=== PATIENT | male | born 1950 | race Two or more races ===

== ENCOUNTER 2021-03-31 10:30 | Inpatient (IN) | payer OTHER ==
[2021-04-05] MEDS ORDERED: VITAMIN B-121000 MC1 (08:21)
[2021-04-05] MEDS ORDERED: VITAMIN D3250 MCG (08:22)
[2021-04-13] MEDS ORDERED: ULTRAM50 MG PO (11:35)
[2021-04-13] MEDS ORDERED: INTESTINEX680 M1 PO (11:37)
== END 2021-04-13 12:09 | disposition home or self-care (01) | DRG 330 ==
LOC: ADM 10:30 → O/R 04-05 05:20 → SURG 04-05 05:20 → SURH 04-05 07:00 → CIR.AMB 04-05 10:30 → EDSTATUS 04-05 10:30 → SURG 04-05 12:01
PROVIDERS: ADMIT Surgery; ATTEND Surgery
PROC: 07BD3ZX Excision of Aortic Lymphatic, Percutaneous Approach, Diagnostic (ICD-10-PCS; 2021-04-05)
PROC: 0DNE4ZZ Release Large Intestine, Percutaneous Endoscopic Approach (ICD-10-PCS; 2021-04-05)
PROC: 0DBU4ZZ Excision of Omentum, Percutaneous Endoscopic Approach (ICD-10-PCS; 2021-04-05)
PROC: 3E0F7SF Introduction of Other Gas into Respiratory Tract, Via Natural or Artificial Opening (ICD-10-PCS; 2021-04-05)
PROC: 4A12X4Z Monitoring of Cardiac Electrical Activity, External Approach (ICD-10-PCS; 2021-04-05)
PROC: 4A033R1 Measurement of Arterial Saturation, Peripheral, Percutaneous Approach (ICD-10-PCS; 2021-04-05)
PROC: 0DBE4ZZ Excision of Large Intestine, Percutaneous Endoscopic Approach (ICD-10-PCS; principal; 2021-04-05 07:00)
PROC: BW2110Z Computerized Tomography (CT Scan) of Abdomen and Pelvis using Low Osmolar Contrast, Unenhanced and Enhanced (ICD-10-PCS; 2021-04-12)
DX: D12.2 Benign neoplasm of ascending colon (principal); K91.89 Other postprocedural complications and disorders of digestive system; K56.7 Ileus, unspecified; B19.10 Unspecified viral hepatitis B without hepatic coma; Y83.8 Other surgical procedures as the cause of abnormal reaction of the patient, or of later complication, without mention of misadventure at the time of the procedure; Y92.230 Patient room in hospital as the place of occurrence of the external cause; K66.0 Peritoneal adhesions (postprocedural) (postinfection); Z20.822 Contact with and (suspected) exposure to COVID-19; I73.89 Other specified peripheral vascular diseases; D64.9 Anemia, unspecified; F10.10 Alcohol abuse, uncomplicated

== ENCOUNTER 2021-04-29 07:55 | Emergency (ER) | payer OTHER ==
[~2021-04-29] VITALS: Ht 177.8 cm; Wt 77.1 kg
[~2021-04-29 07:55] MED LIST: INTESTINEX680 M1 PO; ULTRAM50 MG PO; VITAMIN B-121000 MC1; VITAMIN D3250 MCG
== END 2021-04-29 17:22 | disposition home or self-care (01) ==
LOC: ER 07:55
DX: K59.09 Other constipation (principal); R10.84 Generalized abdominal pain; G89.18 Other acute postprocedural pain; Z11.52 Encounter for screening for COVID-19